=== PATIENT | male | born 1955 | race Caucasian/White ===

== ENCOUNTER 2019-12-12 02:16 | Emergency (ER) | payer MEDICARE, SELFPAY ==
[2019-12-12 02:26] VITALS: BP 159/105; PULSE 65; RESP 18; TEMP 36.4; O2SAT 99; BMI 24.1
--- NOTE | 2019-12-12 02:33 | CT_ITS ---
PROCEDURE: CT ABDOMEN PELVIS WO CON CLINICAL INDICATION: Left sided flank pain ' Left-sided flank pain, history kidney stones COMPARISON: ABDPELW CT ABD PELVIS W/ CONTRAST from 04/18/2017 TECHNIQUE: Axial images obtained with sagittal and coronal reformats. All CT scans at the facility use one or more dose reduction, viz: automated exposure control, ma/kV adjustment per patient size (including targeted exams where dose is matched to indication, i.e. head), or iterative reconstruction technique. FINDINGS: Severe dextro thoracic scoliosis with compensatory levo scoliosis of the lumbar spine. Artifact is present from posterior stabilizing rods. The lung bases are clear. There is thickening of the distal esophagus and gastroesophageal junction. This is nonspecific and may only be due to nondistention. Neoplasm or esophagitis is also considered in the differential diagnosis. Barium swallow or upper endoscopy may provide further evaluation. The liver, gallbladder, spleen, adrenal glands, pancreas, has an unremarkable MRI appearance. Nonobstructing right renal calculus in the lower pole. There are 2 stones each measuring 2 mm. There are 2 faint calcific densities at the left ureterovesical junction which could be due to small stones at 2 mm each. These could also be due to phleboliths. No hydronephrosis. No ureteral dilatation. Prostate is enlarged at 4.7 cm. No evidence of appendicitis or diverticulitis. No intestinal obstruction or free air. Severe S-shaped curvature of the thoracic and lumbar spine with spinal hardware. IMPRESSION: 1. There are 2 faint calcifications noted at the ureterovesical junction at 2 mm either 1 or both could be due to small UVJ stones or phleboliths. 2. Nonobstructing right nephrolithiasis. 3. Severe S-shaped curvature of the thoracic and lumbar spine with artifact from spinal hardware Dictated by: Suman Caraballo MD 12/12/2019 06:24 Electronically signed by Suman Caraballo MD in [place] 12/12/2019 06:24
[2019-12-12 02:41] LABS: Basophils # 0.1 K/mm3 (0-0.2); Basophils % 1.1 % (0.1-2.0); Eosinophils # 1.2 K/mm3 (0.0-0.4); Hematocrit 47.7 % (42.0-52.0); Lymphocytes # 4.2 K/mm3 (0.7-4.5); Lymphocytes % 45.2 % (10-50); Mean Corpuscular HGB Conc 33.5 g/dL (31.8-35.4); Mean Corpuscular Hemoglobin 30.2 pg (27.0-31.2); Mean Platelet Volume 7.8 fl (7.4-10.4); Monocytes # 0.7 K/mm3 (0.1-1.0); Monocytes % 6.9 % (1.7-9.3); Neutrophils # 3.2 K/mm3 (1.8-7.8); Neutrophils % 33.8 % (37.0-80.0); Platelet Count 261 K/mm3 (142-424); Red Cell Distribution Width 13.7 % (11.5-17.5); White Blood Count 9.4 K/mm3 (4.8-10.8)
[2019-12-12 02:45] LABS: Microscopic, Urine URINE MICROSCOPIC (MICROSCOPIC)
[2019-12-12 02:47] LABS: Alanine Aminotransferase 29 U/L (12-78); Albumin Level 4.6 g/dl (3.5-5.0); Albumin/Globulin Ratio 1.2 (1.1-1.8); Alkaline Phosphatase 117 U/L (38-126); Amylase 115 U/L (30-110); Anion Gap 12.7 mEq/L (5-15); Aspartate Amino Transferase 35 U/L (17-59); Bilirubin,Total 0.5 mg/dl (0.2-1.3); Blood Urea Nitrogen 18 mg/dl (9-20); Calcium 9.9 mg/dl (8.4-10.2); Carbon Dioxide 31 mmol/L (22.0-30.0); Chloride 100 mmol/L (98-107); Creatinine Clearance Estimated 62 mL/min (50-200); Estimated Glomerular Filt Rate 67 ml/min (>60); GFR (African American) 81 ML/MIN (>60); Globulin 3.8 g/dL (1.3-3.2); Glucose 127 mg/dl (74-100); Lipase 117 U/L (23-300); Potassium 3.7 mmoL/L (3.5-5.1); Sodium 140 mmol/L (136-145); Total Protein,Serum 8.4 g/dl (6.3-8.2)
[2019-12-12 02:47] LABS: Appearance,Urine CLEAR (Clear); Bilirubin,Urine Negative (Negative); Blood, Urine 3+ (Negative); Color,Urine YELLOW (Yellow); Glucose,Urine (UA) Negative (Negative); Ketones,Urine TRACE (Negative); Leukocyte Esterase,Urine Negative (Negative); Nitrate,Urine Negative (Negative); Protein,Urine Negative (Negative); Specific Gravity, Urine >= 1.030 (1.005-1.030); Urobilinogen,Urine 0.2 EU/dl (0.2)
[2019-12-12 02:58] LABS: Bacteria,Urine 1+ /lpf; Mucus,Urine 1+ /lpf; RBC,Urine TNTC #/hpf (0-3)
[2019-12-12 03:03] VITALS: BP 126/88; PULSE 63; RESP 15; O2SAT 96
--- NOTE | 2019-12-12 03:47 | HMH.EDNVD ---
ED Disposition Clinical Impression: Renal colic on left side Disposition: Home, Self-Care Condition on Discharge: Good Instructions: DI for Kidney Stones Additional Instructions: fluids and see urology for follow up Prescriptions: Tamsulosin HCl [Flomax 0.4mg capsule] 0.4 mg PO HS #10 cap Prescription Printed Referrals: Provider,MD Ga [Primary Care Provider] - Ashok Knott MD [Staff Physician] - - Critical Care Critical Care Time: No Attestation: On 12/12/19, the high probability of a clinically significant, sudden or life threatening deterioration of the following system(s) required my full and direct attention, intervention and personal management. The time I documented below is in addition to time spent performing reported procedures but includes the following listed in this critical care notation. Medical Decision Making - Medical Records Medical records reviewed: Yes: I reviewed the patient's medical records. - Tevin Inquiry Pt receiving controlled substance: No Vital Signs: 12/12/19 02:26 12/12/19 03:03 Temperature 97.6 F Temperature Source Oral Pulse Rate [Right Brachial] 65 63 Respiratory Rate 18 15 Blood Pressure [Right Arm] 159/105 H 126/88 Blood Pressure Mean [Right Arm] 123 100 Blood Pressure Source [Right Arm] Automatic Cuff Automatic Cuff Blood Pressure Position [Right Arm] Sitting Sitting 02 Sat by Pulse Oximetry 99 96 Oxygen Delivery Method Room Air Room Air - Lab Data Lab results reviewed: Yes: I reviewed the patient's lab results. Lab Results 12/12/19 02:30: WBC 9.4, RBC 5.30, Hgb 16.0, Hct 47.7, MCV 90.0, MCH 30.2, MCHC 33.5, RDW 13.7, Plt Count 261, MPV 7.8, Neut % (Auto) 33.8 L, Lymph % (Auto) 45.2, [place] % (Auto) 6.9, Eos % (Auto) 13.0 H, Baso % (Auto) 1.1, Neut # (Auto) 3.2, Lymph # (Auto) 4.2, [place] # (Auto) 0.7, Eos # (Auto) 1.2 H, Baso # (Auto) 0.1 12/12/19 02:30: Sodium 140, Potassium 3.7, Chloride 100, Carbon Dioxide 31 H, Anion Gap 12.7, BUN 18, Creatinine 1.10, Estimated Creat Clear 62, Estimated GFR 67, Est GFR ( Amer) 81, Glucose 127 H, Calcium 9.9, Total Bilirubin 0.5, AST 35, ALT 29, Alkaline Phosphatase 117, Total Protein 8.4 H, Albumin 4.6, Globulin 3.8 H, Albumin/Globulin Ratio 1.2, Amylase 115 H, Lipase 117 12/12/19 02:40: Urine Color Yellow, Urine Appearance Clear, Urine pH 6.0, Ur Specific [place] >= 1.030, Urine Protein Negative, Urine Glucose (UA) Negative, Urine Ketones Trace, Urine Blood 3+, Urine Nitrate Negative, Urine Bilirubin Negative, Urine Urobilinogen 0.2, Ur Leukocyte Esterase Negative, Urine RBC Tntc, Urine WBC 3-5, Ur Squamous Epith Cells 3-5, Urine Bacteria 1+, Urine Mucus 1+ Result diagrams: 12/12/19 02:30 12/12/19 02:30 Orders (Tests/Meds): ED MEDICATIONS Generic Name Dose Route Start Last Admin Trade Name Freq PRN Reason Stop Dose Admin Sodium Chloride 1,000 mls @ 999 mls/hr 12/12/19 03:15 12/12/19 03:11 Sod Chlor 0.9% 1000ml Bag IV 12/12/19 04:15 999 mls/hr .Q1H1M FLAQUITO Administration Discontinued Medications Generic Name Dose Route Start Last Admin Trade Name Freq PRN Reason Stop Dose Admin Ketorolac Tromethamine 30 mg 12/12/19 02:49 12/12/19 03:01 Toradol 30mg/Ml Vial IV 12/12/19 02:50 30 mg ONCE ONE Administration Ondansetron HCl 4 mg 12/12/19 02:49 12/12/19 03:01 Zofran 4mg/2ml Vial IV 12/12/19 02:50 4 mg ONCE ONE Administration ORDERS Category Date Time Status CT abdomen pelvis wo con Stat Cat Scan 12/12/19 02:33 Ordered - CT Data CT Scan: Abdomen, Pelvis Time Received: 03:[address] Reviewed: Yes: I have viewed the radiologist's interpretation Preliminary Findings: Abnormal (0.2 cm lt uvj stone ) Nausea/Vomiting/Diarrhea HPI - General Chief complaint: Abdominal Pain Stated complaint: Pain in left side and groin area Time Seen by Provider: 12/12/19 02:50 Mode of Arrival: Ambulatory Source of Information: Patient, Medical Record Limitation
[2019-12-12 03:58] VITALS: BP 132/85; PULSE 68; RESP 17; TEMP 36.7; O2SAT 98
== END 2019-12-12 04:04 | disposition home or self-care (01) ==
PROVIDERS: Emergency Provider Emergency Medicine
DX: N23 Unspecified renal colic (principal); Z87.442 Personal history of urinary calculi
CPT/HCPCS: 74176; 80053; 81001; 82150; 83690; 85025; 96365; 96375; 99283; J2405

== ENCOUNTER 2021-02-21 23:01 | Emergency (ER) | payer MEDICARE, SELFPAY ==
[2021-02-21 23:15] VITALS: BP 177/87; PULSE 69; RESP 18; TEMP 36.8; O2SAT 98; BMI 23.9
--- NOTE | 2021-02-21 23:22 | CT_ITS ---
PROCEDURE INFORMATION: Exam: CT Abdomen And Pelvis Without Contrast Exam date and time: 02/21/2021 11:22 PM Age: 65 years old Clinical indication: Abdominal pain; Flank; Right; Patient HX: HX of stones; Additional info: Right flank/abd pain TECHNIQUE: Imaging protocol: Computed tomography of the abdomen and pelvis without contrast. Radiation optimization: All CT scans at this facility use at least one of these dose optimization techniques: automated exposure control; mA and/or kV adjustment per patient size (includes targeted exams where dose is matched to clinical indication); or iterative reconstruction. COMPARISON: CT ABDOMEN PELVIS WO CON 12/12/2019 3:16 AM FINDINGS: Lungs: The visualized lung bases are unremarkable. Mediastinal space: There is fluid in the distal esophagus suggesting reflux. Small hiatal hernia. Liver: Unchanged 2.9 x 2.4 cm partially exophytic low-attenuation mass in the anterior left hepatic lobe. Gallbladder and bile ducts: No radiopaque gallstones. No gallbladder wall thickening. No biliary dilation. Pancreas: Unremarkable noncontrast appearance. Spleen: Normal. No splenomegaly. Adrenal glands: Normal. No mass. Kidneys and ureters: Unremarkable noncontrast appearance. No nephrolithiasis, within limits of beam-hardening artifact. No hydronephrosis. Stomach and bowel: No small bowel dilation or obstruction. [id number] amount of solid stool within the colon. No colonic dilation or wall thickening. Appendix: Appendix not visualized. Intraperitoneal space: No pneumoperitoneum. No ascites. Vasculature: Scattered mild atherosclerotic plaque. No abdominal aortic aneurysm. Lymph nodes: No enlarged lymph nodes. Urinary bladder: Bladder is partially fluid-filled. Reproductive: Prostate gland measures 4.7 x 4.2 cm in the axial plane, mildly enlarged. Coarse calcifications within the central portion of the prostate gland. Nonspecific small scrotal hydroceles partially visualized. Bones/joints: Severe rotatory scoliosis thoracolumbar spine, dextroconvex at the thoracic levels and levoconvex at the lumbar levels. Spinal fusion hardware is present, with associated beam-hardening artifact. Chronic-appearing defect in the left iliac wing is unchanged since prior. Soft tissues: Small umbilical and bilateral inguinal hernias containing fat. IMPRESSION: 1. No hydronephrosis or obstructive uropathy. 2. Small hiatal hernia. Suggested gastroesophageal reflux. 3. Other chronic findings as above.
[2021-02-21 23:30] LABS: Basophils # 0.1 K/mm3 (0-0.2); Eosinophils # 0.2 K/mm3 (0.0-0.4); Eosinophils % 2.3 % (0.1-12.0); Hematocrit 48.2 % (42.0-52.0); Hemoglobin 15.7 g/dL (14.1-18.0); Lymphocytes # 3.1 K/mm3 (0.7-4.5); Lymphocytes % 34.6 % (10-50); Mean Corpuscular HGB Conc 32.7 g/dL (31.8-35.4); Mean Corpuscular Hemoglobin 29.6 pg (27.0-31.2); Mean Corpuscular Volume 90.6 fl (80-94); Mean Platelet Volume 8.3 fl (7.4-10.4); Monocytes # 0.6 K/mm3 (0.1-1.0); Monocytes % 6.9 % (1.7-9.3); Neutrophils # 4.8 K/mm3 (1.8-7.8); Neutrophils % 55.1 % (37.0-80.0); Platelet Count 238 K/mm3 (142-424); Red Blood Count 5.32 M/mm3 (4.60-6.20); Red Cell Distribution Width 13.9 % (11.5-17.5); White Blood Count 8.8 K/mm3 (4.8-10.8)
[2021-02-21 23:35] LABS: Alanine Aminotransferase 28 U/L (12-78); Albumin Level 4.1 g/dl (3.5-5.0); Albumin/Globulin Ratio 1.1 (1.1-1.8); Alkaline Phosphatase 89 U/L (38-126); Amylase 103 U/L (30-110); Anion Gap 15.9 mEq/L (5-15); Aspartate Amino Transferase 34 U/L (17-59); Bilirubin,Total 0.4 mg/dl (0.2-1.3); Blood Urea Nitrogen 16 mg/dl (9-20); Carbon Dioxide 27 mmol/L (22.0-30.0); Chloride 105 mmol/L (98-107); Creatinine Clearance Estimated 67 mL/min (50-200); Estimated Glomerular Filt Rate 75 ml/min (>60); GFR (African American) 90 ML/MIN (>60); Globulin 3.6 g/dL (1.3-3.2); Glucose 101 mg/dl (74-100); Lipase 168 U/L (23-300); Potassium 3.9 mmoL/L (3.5-5.1); Sodium 144 mmol/L (136-145); Total Protein,Serum 7.7 g/dl (6.3-8.2)
[2021-02-21 23:41] LABS: C-Reactive Protein 3.3 mg/L (0-4)
--- NOTE | 2021-02-22 00:46 | HMH.EDNVD ---
ED Disposition Clinical Impression: Flank pain, acute Disposition: Home, Self-Care Condition on Discharge: Good Instructions: DI for Flank Pain Additional Instructions: see pcp for follow up Referrals: Provider,Referral, [Primary Care Provider] - - Critical Care Critical Care Time: No Attestation: On 02/21/21, the high probability of a clinically significant, sudden or life threatening deterioration of the following system(s) required my full and direct attention, intervention and personal management. The time I documented below is in addition to time spent performing reported procedures but includes the following listed in this critical care notation. Medical Decision Making - Medical Records Medical records reviewed: Yes: I reviewed the patient's medical records. - Tevin Inquiry Pt receiving controlled substance: No Vital Signs: 02/21/21 23:15 Temperature 98.2 F Temperature Source Oral Pulse Rate [Right Brachial] 69 Respiratory Rate 18 Blood Pressure [Right Arm] 177/87 H Blood Pressure Mean [Right Arm] 117 Blood Pressure Source [Right Arm] Automatic Cuff Blood Pressure Position [Right Arm] Sitting 02 Sat by Pulse Oximetry 98 Oxygen Delivery Method Room Air - Lab Data Lab results reviewed: Yes: I reviewed the patient's lab results. Lab Results 02/21/21 23:15: WBC 8.8, RBC 5.32, Hgb 15.7, Hct 48.2, MCV 90.6, MCH 29.6, MCHC 32.7, RDW 13.9, Plt Count 238, MPV 8.3, Neut % (Auto) 55.1, Lymph % (Auto) 34.6, [place] % (Auto) 6.9, Eos % (Auto) 2.3, Baso % (Auto) 1.0, Neut # (Auto) 4.8, Lymph # (Auto) 3.1, [place] # (Auto) 0.6, Eos # (Auto) 0.2, Baso # (Auto) 0.1 02/21/21 23:15: Sodium 144, Potassium 3.9, Chloride 105, Carbon Dioxide 27, Anion Gap 15.9 H, BUN 16, Creatinine 1.00, Estimated Creat Clear 67, Estimated GFR 75, Est GFR ( Amer) 90, Glucose 101 H, Calcium 9.0, Total Bilirubin 0.4, AST 34, ALT 28, Alkaline Phosphatase 89, C-Reactive Protein 3.3, Total Protein 7.7, Albumin 4.1, Globulin 3.6 H, Albumin/Globulin Ratio 1.1, Amylase 103, Lipase 168 02/22/21 00:55: Urine Color Yellow, Urine Appearance Clear, Urine pH 8.5, Ur Specific [place] 1.020, Urine Protein Negative, Urine Glucose (UA) Negative, Urine Ketones 1+, Urine Blood Negative, Urine Nitrate Negative, Urine Bilirubin Negative, Urine Urobilinogen 0.2, Ur Leukocyte Esterase Negative Result diagrams: 02/21/21 23:15 02/21/21 23:15 Orders (Tests/Meds): ED MEDICATIONS Generic Name Dose Route Start Last Admin Trade Name Freq PRN Reason Stop Dose Admin Sodium Chloride 1,000 mls @ 999 mls/hr 02/21/21 23:30 02/21/21 23:28 Sod Chlor 0.9% 1000ml Bag IV 02/22/21 00:30 999 mls/hr .Q1H1M FLAQUITO Administration Tamsulosin HCl 0.4 mg 02/22/21 21:00 02/21/21 23:49 Tamsulosin 0.4mg Capsule PO 03/24/21 20:59 0.4 mg HS FLAQUITO Administration Discontinued Medications Generic Name Dose Route Start Last Admin Trade Name Freq PRN Reason Stop Dose Admin Acetaminophen/Codeine Phosphate 1 carl 02/22/21 00:48 Acetaminophen 300mg W/Codeine 30mg Take Home Pack (6) PO 02/22/21 00:49 ONCE ONE Ketorolac Tromethamine 30 mg 02/21/21 23:25 02/21/21 23:28 Ketorolac 30mg/Ml Vial IV 02/21/21 23:26 30 mg ONCE ONE Administration Morphine Sulfate 4 mg 02/21/21 23:42 02/21/21 23:48 Morphine 4mg/Ml Syringe IV 02/21/21 23:43 4 mg ONCE ONE Administration Ondansetron HCl 4 mg 02/21/21 23:42 02/21/21 23:48 Ondansetron 4mg/2ml Vial IV 02/21/21 23:43 4 mg ONCE ONE Administration ORDERS Category Date Time Status Urinalysis and Microscopic Stat Lab 02/22/21 00:55 Results - CT Data CT Scan: Abdomen, Pelvis Time Received: 00:[address] Reviewed: Yes: I have viewed the radiologist's interpretation Preliminary Findings: Normal/NAD Medical Decision Narrative: acute rt flank pain with no rash p renal colic like pain Nausea/Vomiting/Diarrhea HPI - General Chief complaint: Abdominal Pain Stated co
[2021-02-22 00:58] LABS: Microscopic, Urine URINE MICROSCOPIC (MICROSCOPIC)
[2021-02-22 00:59] LABS: Appearance,Urine CLEAR (Clear); Bilirubin,Urine Negative (Negative); Blood, Urine Negative (Negative); Color,Urine YELLOW (Yellow); Glucose,Urine (UA) Negative (Negative); Ketones,Urine 1+ (Negative); Leukocyte Esterase,Urine Negative (Negative); Nitrate,Urine Negative (Negative); PH,Urine 8.5 (5.0-8.5); Protein,Urine Negative (Negative); Urobilinogen,Urine 0.2 EU/dl (0.2)
[2021-02-22 01:22] VITALS: BP 124/85; PULSE 76; RESP 18; TEMP 36.8; O2SAT 99
[2021-02-22 01:23] LABS: Amorphous Sediment,Urine 1+ /lpf; Bacteria,Urine Trace /lpf
[2021-02-22 01:40] LABS: Coronavirus 19, PCR Not Detected (NotDetected); Influenza A, PCR Not Detected (NotDetected); Influenza B, PCR Not Detected (NotDetected)
== END 2021-02-22 01:29 | disposition home or self-care (01) ==
PROVIDERS: Emergency Provider Emergency Medicine
DX: R10.11 Right upper quadrant pain (principal); Z20.822 Contact with and (suspected) exposure to COVID-19
CPT/HCPCS: 74176; 80053; 81001; 82150; 83690; 85025; 86140; 96365; 96375; 99282; J2405; U0003

== ENCOUNTER → 2023-06-05 07:26 | Outpatient (CLI) | payer MEDICARE, SELFPAY ==
[2023-06-05 19:23] LABS: Basophils # 0.1 K/mm3 (0-0.2); Eosinophils # 0.1 K/mm3 (0.0-0.4); Eosinophils % 1.8 % (0.1-12.0); Hematocrit 50.4 % (42.0-52.0); Lymphocytes # 2.3 K/mm3 (0.7-4.5); Lymphocytes % 31.6 % (10-50); Mean Corpuscular HGB Conc 33.7 g/dL (31.8-35.4); Mean Corpuscular Hemoglobin 30.5 pg (27.0-31.2); Mean Corpuscular Volume 90.4 fl (80-94); Mean Platelet Volume 9.7 fl (7.4-10.4); Monocytes # 0.5 K/mm3 (0.1-1.0); Monocytes % 7.4 % (1.7-9.3); Neutrophils # 4.2 K/mm3 (1.8-7.8); Neutrophils % 58.1 % (37.0-80.0); Platelet Count 218 K/mm3 (142-424); Red Blood Count 5.57 M/mm3 (4.60-6.20); Red Cell Distribution Width 13.7 % (11.5-17.5); White Blood Count 7.2 K/mm3 (4.8-10.8)
[2023-06-05 20:06] LABS: Alanine Aminotransferase 37 U/L (12-78); Alkaline Phosphatase 106 U/L (38-126); Aspartate Amino Transferase 34 U/L (17-59); Bilirubin,Total 0.8 mg/dl (0.2-1.3); Blood Urea Nitrogen 17 mg/dl (9-20); Carbon Dioxide 29 mmol/L (22.0-30.0); Chloride 103 mmol/L (98-107); Estimated Glomerular Filt Rate 60 ml/min (>60); GFR (African American) 73 ML/MIN (>60)
[2023-06-05 20:08] LABS: Albumin Level 4.4 g/dl (3.5-5.0); Albumin/Globulin Ratio 1.3 (1.1-1.8); Anion Gap 10.8 mEq/L (5-15); Calcium 8.7 mg/dl (8.4-10.2); Globulin 3.5 g/dL (1.3-3.2); Glucose 103 mg/dl (74-100); Potassium 4.8 mmoL/L (3.5-5.1); Sodium 138 mmol/L (136-145); Total Protein,Serum 7.9 g/dl (6.3-8.2)
[2023-06-05 20:33] LABS: Thyroid Stimulating Hormone 2.01 uIU/mL (0.465-4.68)
[2023-06-05 20:51] LABS: Vitamin B12 422 pg/mL (239-931)
== END ==
PROVIDERS: PCP Family Medicine; Visit Provider Family Medicine
DX: R07.9 Chest pain, unspecified (principal); H53.8 Other visual disturbances; R53.1 Weakness; N23 Unspecified renal colic; R25.2 Cramp and spasm
CPT/HCPCS: 80053; 82607; 84443; 85025

== ENCOUNTER → 2023-06-11 11:06 | Outpatient (CLI) | payer MEDICARE, SELFPAY ==
--- NOTE | 2023-06-11 11:08 | CA_ITS ---
APPROVED REPORT Exam: Exercise Treadmill Technologist: Mesha Rodríguez, Ht: 5 ft 5 in Wt: 152 lbs BSA: 1.76 m2 HR: 53 bpm BP: 139/92 mmHg Stress Test Details Test: Theo HR Resting HR: 55 bpm Max Heart Rate (APMHR): 152 bpm Max HR Achieved: 134 bpm Target HR (85% APMHR): 129 bpm % of APMHR: 88 Recovery HR: 114 bpm HR response to stress: Normal HR response to stress BP Resting BP: 146.0/95 mmHg Max BP: 170/110 mmHg Recovery BP: 159.0/98.0 mmHg BP response to stress: Normal blood pressure response to stress. ECG Resting ECG: NSR, T-wave changes at baseline Stress EC mm horizontal ST depression Arrhythmia: None Recovery ECG: Return to baseline within 3 minutes of recovery Recovery Arrhythmia: None Clinical Exercise duration: 09:00 min Highest Stage Achieved: Exercise capacity: 10.1 METs Overall Exercise Capacity for Age: Average Stress ECG Conclusion The patient was able to exercise for a total of 9m, 0s. He achieved a total of 10.1 METs. He has an average exercise capacity compared to age and sex matched peers. During Theo protocol pt experinced SOA with peak exercise, no CP noted. No arrhytmias noted. ST changes: 1mm horizontal ST depression. CONCLUSION Stress ECG suggestive of ischemia. Myoview images are reported separately. Test Summary REST . . . . . . . Sitting REST . . . . . . . Standing REST 05:22 0.0 0.0 55 . 146/ 95 . . Stage 1 01:00 10.0 1.7 103 . . . . Stage 1 02:00 10.0 1.7 109 . 165/105 . . Stage 1 03:00 10.0 1.7 108 . 165/105 . . Stage 2 01:00 12.0 2.5 116 . . . . Stage 2 02:00 12.0 2.5 120 . 170/110 . . Stage 2 03:00 12.0 2.5 115 . 170/110 . . Stage 3 01:00 14.0 3.4 126 . . . . Stage 3 02:00 14.0 3.4 130 . . . . Stage 3 03:00 14.0 3.4 133 . . . Stop exercise at 09:00 RECOVERY 01:00 0.0 0.0 108 . 159/ 98 . . RECOVERY 02:00 0.0 0.0 93 . 159/ 98 . . RECOVERY 03:00 0.0 0.0 74 . 146/ 91 . . RECOVERY 04:00 0.0 0.0 0 . 146/ 91 . . RECOVERY 04:45 0.0 0.0 0 . 146/ 91 . . Electronically signed by : Jesenia Lucas MD 06/16/2023 17:55:57
--- NOTE | 2023-06-11 11:13 | NM_ITS ---
APPROVED REPORT Exam: Nuclear Stress Test Indication: C.P., FATIGUE Patient Location: Outpatient Stress Tech: Mesha SCHROEDER Tech:Mary Wooten PASHAKameron RT (R)(N)(M) Ht: 5 ft 5 in Wt: 152 lbs HR: 55 bpm BP: 146/95 mmHg BSA: 1.76 m2 TID: 1.11 BMI: 25.2 History: Chest pain, fatigue 6 Procedure: Patient exercised on Theo protocol 9:00 minutes and sec, resting heart rate 55 bpm, resting blood pressure 146/95 mmHg, with exercise maximum heart rate achived was 134 bpm which is 88 % of the maximum predicted heart rate and blood pressure was 170/110 mmHg. Test was stopped due to fatigue. Patient has average exercise capacity, achieved 10.1 METs of workload on treadmill, the blood pressure response to exercise was normal. Cardiac Stress and Resting SPECT Images: Cardiac Stress and Resting SPECT images were obtained using technetium 99m Myoview 31.2 mCi stress and 10.01 mCi at rest. Resting and stress imaging in supine and prone positions demonstrate no evidence of fixed or reversible perfusion defects. Gated imaging demonstrates low-normal global and regional LV systolic function. LVEF is calculated at 50%. Conclusion: No evidence of fixed or reversible perfusion defects. Gated imaging demonstrates low-normal global and regional LV systolic function. LVEF is calculated at 50%. Electronically signed by : Jesenia Lucas MD 06/16/2023 17:58:23
== END ==
LOC: RT 11:08 → RAD 11:09
PROVIDERS: PCP Family Medicine; Visit Provider Family Medicine
DX: R07.9 Chest pain, unspecified (principal)
CPT/HCPCS: 78452; 93017; 93018; A9502

== ENCOUNTER 2023-10-21 03:41 | Emergency (ER) | payer MEDICARE, SELFPAY ==
[2023-10-21 03:52] VITALS: BP 149/99; PULSE 90; RESP 20; O2SAT 99
[2023-10-21 04:00] VITALS: BP 149/99; PULSE 86; RESP 19; TEMP 36.7; O2SAT 96; BMI 24.4
--- NOTE | 2023-10-21 04:16 | CT_ITS ---
PROCEDURE INFORMATION: Exam: CT Lumbar Spine Without Contrast Exam date and time: 10/21/2023 5:01 AM Age: 67 years old Clinical indication: Pain; Lumbago with sciatica; Additional info: Acute severe atraumatic R low back/si joint pain TECHNIQUE: Imaging protocol: Computed tomography of the lumbar spine without contrast. Radiation optimization: All CT scans at this facility use at least one of these dose optimization techniques: automated exposure control; mA and/or kV adjustment per patient size (includes targeted exams where dose is matched to clinical indication); or iterative reconstruction. COMPARISON: CT ABDOMEN PELVIS WO CON 02/21/2021 11:28 PM FINDINGS: Bones/joints: Severe dextroconvex scoliosis in the thoracic spine and levoconvex scoliosis in the lumbar spine. Stable appearing postsurgical changes with bilateral stabilization rods in the thoracolumbar spine. 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 Soft tissues: No acute findings. IMPRESSION: 1. No acute osseous findings. 2. Severe thoracolumbar scoliosis with extensive spinal postsurgical changes, similar to prior exam.
--- NOTE | 2023-10-21 04:18 | CT_ITS ---
PROCEDURE INFORMATION: Exam: CT Pelvis Without Contrast; Skeletal Exam date and time: 10/21/2023 5:05 AM Age: 67 years old Clinical indication: Pelvic pain; Additional info: Acute severe atraumatic R low back/si joint pain TECHNIQUE: Imaging protocol: Computed tomography of the pelvis without contrast. Exam focused on the skeleton. Radiation optimization: All CT scans at this facility use at least one of these dose optimization techniques: automated exposure control; mA and/or kV adjustment per patient size (includes targeted exams where dose is matched to clinical indication); or iterative reconstruction. COMPARISON: CT ABDOMEN PELVIS WO CON 02/21/2021 11:28 PM FINDINGS: Bones/joints: Chronic postsurgical changes in the lumbar spine. Chronic osseous defect in the left ilium. No acute osseous findings. No osseous destructive process. Levoconvex scoliosis of the lumbar spine. Soft tissues: No acute findings. IMPRESSION: 1. No acute osseous findings. 2. Chronic and postsurgical changes in the lumbar spine and pelvis.
--- NOTE | 2023-10-21 04:19 | HMH.EDGENADL ---
Discharge Plan Disposition Patient Disposition: Home, Self-Care Chief Complaint: Back Pain/Injury Prescriptions Prescriptions: New methocarbamol 500 mg tablet 1,000 mg PO Q6H PRN (Reason: pain) Qty: 45 0RF lidocaine 5 % adhesive patch,medicated 1 patch topical DAILY PRN (Reason: pain) Qty: 30 0RF Rx Instructions: leave on most painful area for up to 12 hrs No Action pregabalin 75 mg capsule 75 mg PO BID Qty: 60 3RF methylprednisolone [Medrol (Denzel)] 4 mg tablets,dose pack See Rx Instructions PO PER PKG DIR Qty: 21 0RF Rx Instructions: PO PER PKG DIR Referrals Follow up/Referrals: Provider,Referral, [Primary Care Provider] - See instructions Activity Restrictions/Add. Instructions Additional Instructions/Restrictions: Please follow-up with your primary care provider. Please return to the emergency department if you develop any new or worsening symptoms or become concerned for your health. Please take Tylenol ibuprofen as needed for pain. Please take Robaxin as needed for pain. Please use lidocaine patches. Clinical Impressions Clinical Impression: Low back pain Instructions Patient Instructions: DI for Low Back Pain Discharge ED Provider: Braxton Suarez General Adult HPI General Chief complaint: Back Pain/Injury Stated complaint: lower back right side pain Time Seen by Provider: 10/21/23 03:45 Mode of Arrival: Family Vehicle Source of Information: Patient Limitations: No Limitations Description of Symptoms (Recalled from ER Triage Doc. by RN): 67 yo male presents with CC of right lumbar pain with radiation reported down into the RLE; patient is alert,oriented x4. States he has no recent history of accident/trauma; denies excess exertion. PMH: scoliosis w/ multiple repairs. History of Present Illness HPI narrative: 67-year-old male with history of scoliosis status post repairs decades ago presents with right low back pain. Reports that it sometimes shoots across his low back, sometimes shoots down the right leg. He reports it started when he woke up a few mornings ago. It has slowly worsened and is now much worse. When he sits up in the chair he does not have any significant pain, but it is significantly worse with lying down or bending over or walking. He denies any recent fever or illness. Denies any history of cancer. Denies any history of drug use. He denies any numbness in the groin or weakness in the lower extremities. He has taken ibuprofen at home without improvement. No recent falls or trauma. Denies any urinary symptoms. Reports has had kidney stones and this does not feel anything like it. 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 Medical History (Updated 10/21/23 @ 06:19 by Braxton Suarez MD) Herpes zoster Pterygium of eye Weakness Chest pain Leg cramps Blurry vision, left eye Kidney stone Surgical History History of back surgery Family History Other No significant family history Social History Smoking Status: Former smoker alcohol intake: never current occupational status: employed Travel in the last 8 weeks: None ROS Obtained: Yes All systems reviewed & no additional complaints except as documented Physical Exam General General appearance: alert and in no apparent distress Comment: Uncomfortable appearing laying in bed secondary to pain Head Head exam: atraumatic and normocephalic Eye Eye exam: Present normal appearance, PERRL and EOMI ENT ENT exam: Present normal oropharynx and normal external ear exam Neck Neck exam: Present normal inspection and full ROM Chest Chest inspection: Present normal inspection and symmetric chest wall rise; Absent tenderness Respiratory Respiratory exam: Present normal lung sounds bilaterally; Absent respiratory distress Cardiovascular Cardiovascular exam: Present regular rate and normal rhythm Abdominal Exam Abdominal exam: Present soft; Absent distention, tenderness or guarding Extremities Exam Extremities exam: Present normal inspection, full ROM (Active range of motion of the lower extremities limited secondary to pain, no weakness noted, normal sensation) and other (Appropriate lower extremity pulses noted); Absent edema or joint swelling Back Exam Back exam: Present other (Significant scoliosis noted. Tenderness over the right SI joint and surrounding soft tissue. No significant midline tenderness.) Neurological Exam Neurological exam: Present alert and oriented X3; Absent motor sensory deficit Psychiatric Psychiatric exam: Present normal affect and normal mood Skin Skin exam: Present warm, dry and normal color Lymphatic Lymphatic Findings: no adenopathy Medical Decision Making Medical Records Medical records reviewed: Yes I reviewed the patient's medical records. Tevin Inquiry Pt receiving controlled substance: No Tevin was queried for this patient: No Vital Signs: 10/21/23 03:52 10/21/23 04:00 10/21/23 05:22 Temperature 98.0 F Temperature Source Oral Pulse Rate 90 77 Pulse Rate [Right Brachial] 86 Respiratory Rate 20 19 18 Blood Pressure 149/99 H 123/92 H Blood Pressure [Right Arm] 149/99 H Blood Pressure Mean 121 Blood Pressure Mean [Right Arm] 115 Blood Pressure Source [Right Arm] Automatic Cuff Blood Pressure Position [Right Arm] Sitting 02 Sat by Pulse Oximetry 99 96 97 Oxygen Delivery Method Room Air Room Air Room Air Lab Data Lab results reviewed: Yes I reviewed the patient's lab results. Orders (Tests/Meds): ED MEDICATIONS Discontinued Medications Generic Name Dose Route Start Last Admin Trade Name Freq PRN Reason Stop Dose Admin Acetaminophen 1,000 mg 10/21/23 04:16 10/21/23 04:24 Acetaminophen 500mg Tab PO 10/21/23 04:17 1,000 mg ONCE ONE Administration Ketorolac Tromethamine 30 mg 10/21/23 04:16 10/21/23 04:24 Ketorolac 30mg/Ml Vial IV 10/21/23 04:17 30 mg ONCE ONE Administration Lidocaine 1 each 10/21/23 04:16 10/21/23 04:25 Lidocaine 5% Transdermal Patch TP 10/21/23 04:17 1 each ONCE ONE Administration Methocarbamol 750 mg 10/21/23 04:16 10/21/23 04:25 Methocarbamol 500mg Tablet PO 10/21/23 04:17 750 mg ONCE ONE Administration ORDERS Category Date Time Status CT bony pelvis Stat Cat Scan 10/21/23 04:[address] lumbar spine wo con Stat Cat Scan 10/21/23 04:16 Completed Medical Decision Narrative: 67-year-old male with history of scoliosis presents with few days of worsening atraumatic right sided low back pain shooting across the low back and down the right leg.. History was obtained interactive discussion with patient. On arrival, patient is [afebrile, hemodynamically stable, satting appropriately, alert, oriented x4, GCS 15], moving all extremities spontaneously. Full physical exam performed and significant for no findings consistent with spinal cord pathology Differential includes but is not limited to fracture, dislocation, malignancy, disc herniation, SI joint pathology spinal cord lesion,. Patient was given p.o. Tylenol, IV Toradol, p.o. Robaxin, lidocaine patch for symptomatic management and correction of underlying abnormalities. Workup initiated including CT lumbar spine, CT bony pelvis given age with new acute severe back pain. Given it is changed with positioning, reproducible on palpation, unilateral and very low in the back, has normal lower extremity neuro vascular exam I am not concerned that it is aortic, renal, or spinal cord in nature at this time. On re-evaluation, patient [remains afebrile, HD stable.] Reports some symptomatic improvement after medication interventions. Reports now when he sits still he does not really feel it. Still exacerbated by movement. Imaging independently interpreted by me and significant for extensive lumbar hardware and chronic degenerative changes without evidence of acute fracture, malignancy, ureteral stone. See radiology read for full review of final results. Given patient history, exam and workup, patient's presentation most likely represents musculoskeletal low back pain, may be SI joint in nature. Had extensive discussion with patient regarding his presentation and workup. Recommended he follow-up with PCP for further assessment. Patient was discharged with prescription for Robaxin and lidocaine patches and given instruction regarding symptomatic care using [id number] medications and therapies.. Procedures Risk/Benefits of Procedure(s) Were Explained: Yes Critical Care Critical Care Time Critical Care Time: No
[2023-10-21] MEDS: KETOROLAC 30MG/ML VIAL 30 MG IV (04:24)
[2023-10-21] MEDS: ACETAMINOPHEN 500MG TAB 1000 MG PO (04:24)
[2023-10-21] MEDS: LIDOCAINE 5% TRANSDERMAL PATCH 1 EACH TP (04:25)
[2023-10-21] MEDS: METHOCARBAMOL 500MG TABLET 750 MG PO (04:25)
[2023-10-21 05:22] VITALS: BP 123/92; PULSE 77; RESP 18; O2SAT 97
[2023-10-21 06:29] VITALS: BP 120/88; PULSE 89; RESP 16; TEMP 36.6
== END 2023-10-21 06:33 | disposition home or self-care (01) ==
PROVIDERS: Emergency Provider Emergency Medicine
DX: M54.50 Low back pain, unspecified (principal)
CPT/HCPCS: 72131; 72192; 96374; 99285

== ENCOUNTER 2024-08-01 18:32 | Emergency (ER) | payer MEDICARE, SELFPAY ==
[2024-08-01] VITALS (10 sets, daily range): BP systolic 133–156; BP diastolic 97–115; PULSE 61–77; RESP 16–20; TEMP 36.8; O2SAT 94–99; BMI 23.3
--- NOTE | 2024-08-01 18:32 | ECG_ITS ---
APPROVED REPORT Exam: Resting ECG HR:77 bpm ECG Measurements Heart Rate 77 AXES NC 157 P 42 QRSd 93 QRS 54 QT 347 T 16 QTc 379 Conclusion SINUS RHYTHM POSSIBLE LEFT ATRIAL ENLARGEMENT [-0.1mV P-WAVE IN V1/V2] Electronically signed by : OCTAVIO LOGAN, 08/02/2024 00:16:19
--- NOTE | 2024-08-01 18:53 | CT_ITS ---
PROCEDURE INFORMATION: Exam: CTA Chest With Contrast Exam date and time: 08/01/2024 7:27 PM Age: 68 years old Clinical indication: Other: Chest pain rad to back TECHNIQUE: Imaging protocol: Computed tomographic angiography of the chest with contrast. Exam focused on the arteries. 3D rendering (Not supervised by radiologist): MIP and/or 3D reconstructed images were created by the technologist. Radiation optimization: All CT scans at this facility use at least one of these dose optimization techniques: automated exposure control; mA and/or kV adjustment per patient size (includes targeted exams where dose is matched to clinical indication); or iterative reconstruction. Contrast material: ISOUVE 370; Contrast volume: 70 ml; Contrast route: INTRAVENOUS (IV); COMPARISON: CT ABDOMEN PELVIS WO CON 02/21/2021 11:28 PM FINDINGS: Pulmonary arteries: There is no evidence of filling defects within the pulmonary arterial circulation to suggest pulmonary embolism. Aorta: The descending thoracic aorta is tortuous. No ectasia. No dissection. Teeth: Dental amalgam artifact limits evaluation of adjacent structures. Thyroid: The left thyroid appears small. The right thyroid lobe appears within range of normal. Lungs: No focal areas of consolidation. There is a small subpleural bulla/bleb involving the posteroinferior right lower lobe measuring approximately 3 x 0.7 cm. There are a few punctate pulmonary parenchymal calcifications, consistent with remote granulomatous organism exposure. Pleural spaces: No pneumothorax. No pleural effusions. Heart: The heart is not enlarged. There is no evidence of pericardial fluid collections. Lymph nodes: There is no evidence of pathologic adenopathy. A few calcified hilar lymph nodes bilaterally indicate prior granulomatous disease. Diaphragm: A moderate hiatal hernia is present. Gallbladder and biliary ducts: A few subtle layering foci of increased attenuation in the gallbladder likely reflect stones or sludge. No gallbladder wall thickening or pericholecystic fluid. calcified gallstones are present. Bones/joints: There is severe convex right thoracolumbar scoliosis with an S- shaped convex left lumbar scoliosis. Extensive posterior spinal fixation hardware is present, as before. There are mild degenerative changes of the shoulder joints bilaterally. There is no evidence of acute fracture. The thoracic spine demonstrates moderate degenerative changes at multiple levels. Soft tissues: No significant soft tissue edema. IMPRESSION: 1. No evidence of pulmonary embolism. 2. Mild cholelithiasis or sludge. 3. Small to moderate hiatal hernia. 4. Small subpleural bulla/bleb involving the posteroinferior right lower lobe measuring approximately 3 x 0.7 cm.
[2024-08-01 18:58] LABS: Basophils # 0.1 K/mm3 (0-0.2); Eosinophils # 0.3 K/mm3 (0.0-0.4); Eosinophils % 3.7 % (0.1-12.0); Hematocrit 47.4 % (42.0-52.0); Hemoglobin 15.6 g/dL (14.1-18.0); Lymphocytes # 2.7 K/mm3 (0.7-4.5); Lymphocytes % 30.6 % (10-50); Mean Corpuscular HGB Conc 32.9 g/dL (31.8-35.4); Mean Corpuscular Hemoglobin 28.7 pg (27.0-31.2); Mean Corpuscular Volume 87.1 fl (80-94); Mean Platelet Volume 9.4 fl (7.4-10.4); Monocytes # 1.1 K/mm3 (0.1-1.0); Monocytes % 11.7 % (1.7-9.3); Neutrophils # 4.7 K/mm3 (1.8-7.8); Neutrophils % 52.8 % (37.0-80.0); Platelet Count 242 K/mm3 (142-424); Red Blood Count 5.44 M/mm3 (4.60-6.20)
[2024-08-01 19:01] LABS: Albumin Level 4.3 g/dl (3.5-5.0); Chloride 104 mmol/L (98-107); Potassium 3.6 mmoL/L (3.5-5.1); Sodium 139 mmol/L (136-145)
[2024-08-01 19:03] LABS: Alanine Aminotransferase 32 U/L (12-78); Aspartate Amino Transferase 40 U/L (17-59); Bilirubin,Total 0.6 mg/dl (0.2-1.3); Blood Urea Nitrogen 15 mg/dl (9-20); Carbon Dioxide 29 mmol/L (22.0-30.0); Creatinine Clearance Estimated 65 mL/min (50-200); Estimated Glomerular Filt Rate 74 ml/min (>60); GFR (African American) 90 ML/MIN (>60)
[2024-08-01 19:04] LABS: Albumin/Globulin Ratio 1.3 (1.1-1.8); Alkaline Phosphatase 107 U/L (38-126); Anion Gap 9.6 mEq/L (5-15); Globulin 3.3 g/dL (1.3-3.2); Glucose 105 mg/dl (74-100); Lipase 109 U/L (23-300); Total Protein,Serum 7.6 g/dl (6.3-8.2)
[2024-08-01] MEDS: ACETAMINOPHEN 500MG TAB 1000 MG PO (19:16)
[2024-08-01] MEDS: KETOROLAC 30MG/ML VIAL 15 MG IV (19:16)
[2024-08-01] MEDS: BELLADONNA ALKALOIDS 60 ML ML PO (19:16)
[2024-08-01 19:19] LABS: Troponin I < 0.01 ng/ml (0.00-0.034)
--- NOTE | 2024-08-01 19:19 | ED_ITS ---
Discharge Plan Disposition Patient Disposition: Home, Self-Care Condition: Good Prescriptions Prescriptions: New acyclovir 800 mg tablet 800 mg PO Q4H 7 Days Qty: 42 0RF Rx Instructions: while awake; give 5 doses in 24 hours gabapentin 300 mg capsule 300 mg PO Q12H PRN (Reason: pain) Qty: 12 0RF Referrals Follow up/Referrals: Villa Hartman MD [Staff Physician] - See instructions Margie Vaughan MD [Primary Care Provider] - See instructions Zeynep Leigh MD [Physician] - See instructions Ayad Lucas MD [Staff Physician] - See instructions Activity Restrictions/Add. Instructions Additional Instructions/Restrictions: You were evaluated in the emergency department today. Please pickup driver your prescriptions at the pharmacy. Use caution when taking gabapentin, as it can make you sleepy. 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 Follow-up closely with your primary care provider. You have a lung bleb, for which I recommend outpatient follow-up with pulmonology. You have gallstones and biliary sludge, for which I recommend follow-up with general surgery, as this can cause chest and abdominal pain. I also recommend close follow-up with cardiology given your recurrent chest pain. Return to the emergency department right away for new or worsening symptoms. Clinical Impressions Clinical Impression: Herpes zoster infection of thoracic region, Chest pain, Gallstones, Bleb, lung, Gallbladder sludge Instructions Patient Instructions: DI for Shingles, DI for Gallstones, DI for Chest Pain Print Language Print Language: Maltese Discharge ED Provider: Parris Marino HPI General Chief Complaint: Chest Pain Stated Complaint: CP Time Seen by Provider: 08/01/24 18:34 Mode of Arrival: Ambulatory Source of Information: Patient Limitations: No Limitations Description of Symptoms (Recalled from ER Triage Doc. by RN): pt c/o sternal chest pain that radiates to his back and epigastic region. pt also reports L sided jaw pain. pt states the chest pain is a 4/10. The pain has been intermittant since 1430. pt denies SOA or N/V/D pt denies any daily medications or medical hx. History of Present Illness HPI narrative: This patient is a 68-year-old male with a history of herpes zoster presenting to the emergency department for evaluation with concern for chest pain. Patient states that he is having midsternal chest pain that radiates to different areas at different times. It is intermittent and comes and goes and has for quite some time, but has been more frequent today. He states that it intermittently radiates up to his right shoulder, left jaw, left ear, and to his back. It is 4 out of 10. No shortness of breath, nausea, vomiting, diarrhea. No trauma. He does have a rash with bumps coming around his right lower ribs. He does have a history of shingles over a year ago. Related Data Previous Rx's ?Medication ?Instructions ?Recorded acyclovir 800 mg tablet 800 mg PO Q4H 7 days #42 tabs 08/01/24 gabapentin 300 mg capsule 300 mg PO Q12H PRN pain #12 caps 08/01/24 Allergies Allergy/AdvReac Type Severity Reaction Status Date / Time No Known Allergies Allergy Verified 08/01/24 18:45 [facility] Disclaimer: The information contained in this section may have been updated after the patient was seen, as this information can be updated by other users. Medical History Herpes zoster Pterygium of eye Weakness Chest pain Leg cramps Blurry vision, left eye Kidney stone Surgical History History of back surgery Family History Other No significant family history Social History Smoking Status: Never smoker alcohol intake: never current occupational status: employed Travel in the last 8 weeks: None Have you lived/traveled outside [place] in past 30 days?: No Contact w/someone who lives/traveled outside [place] past 30 days?: No Exposure to someone with infectious disease in past 14 days?: No Do you have a fever (greater than 100.4 F or 38 C)?: No Have you tested positive for COVID-19: No Exposed to someone with COVID-19 in past 14 days?: No Do you have a sore throat?: No Do you have a cough?: No Do you have any weakness?: No Do you have any diarrhea?: No Are you experiencing any unusual bleeding?: No Do you have any muscle aches/pain?: No Do you have any abdominal pain?: No Are you experiencing loss of taste or smell?: No Other Medical History Have you received the Flu Vaccine for this season: No Have you received the Pneumonia Vaccine: No ROS Obtained: Yes All systems reviewed & no additional complaints except as documented Physical Exam General General appearance: alert and in no apparent distress Head Head exam: atraumatic and normocephalic Eye Eye exam: Present normal appearance, PERRL and EOMI ENT ENT exam: Present normal exam, normal oropharynx, mucous membranes moist and normal external ear exam Neck Neck exam: Present normal inspection, full ROM and trachea midline; Absent tenderness Chest Chest inspection: Present normal inspection and symmetric chest wall rise; Absent tenderness Respiratory Respiratory exam: Present normal lung sounds bilaterally; Absent respiratory distress, wheezes, stridor or accessory muscle use Cardiovascular Cardiovascular exam: Present regular rate and normal rhythm Abdominal Exam Abdominal exam: Present soft; Absent distention, tenderness or guarding Extremities Exam Extremities exam: Present normal inspection, full ROM and normal capillary refill; Absent tenderness or edema Back Exam Back exam: Present normal inspection and full ROM; Absent tenderness Neurological Exam Neurological exam: Present alert, oriented X3, CN II-XII intact and normal gait; Absent motor sensory deficit Psychiatric Psychiatric exam: Present normal affect and normal mood Skin Skin exam: Present warm, dry and other (Vesicular rash in a dermatomal distribution around the right chest/lower ribs with tenderness to palpation) HEART Score HEART Score HEART Score assessment performed?: Yes History (anamnesis): Moderately suspicious ECG: Normal Age: >65 years Risk factors: 1-2 risk factors Troponin: </= normal limit HEART Score: 4 Critical Care Critical Care Time Critical Care Time: No Medical Decision Making Tevin Inquiry Pt receiving controlled substance: Yes Tevin was queried for this patient: Yes Risks and benefits of using a controlled substance: were discussed with pt by me Vital Signs Vital Signs: 08/01/24 18:35 08/01/24 19:00 08/01/24 20:00 Temperature 98.3 F Temperature Source Oral Pulse Rate 71 69 Pulse Rate [Left] 77 Respiratory Rate 18 16 Blood Pressure 141/103 H 133/97 H Blood Pressure [Right Arm] 155/110 H Blood Pressure Mean [Right Arm] 125 Blood Pressure Source [Right Arm] Automatic Cuff Blood Pressure Position [Right Arm] Sitting 02 Sat by Pulse Oximetry 97 96 94 L Oxygen Delivery Method Room Air 08/01/24 20:30 08/01/24 20:31 08/01/24 21:00 Temperature Temperature Source Pulse Rate 68 75 68 Pulse Rate [Left] Respiratory Rate Blood Pressure 136/115 H 156/112 H 153/110 H Blood Pressure [Right Arm] Blood Pressure Mean [Right Arm] Blood Pressure Source [Right Arm] Blood Pressure Position [Right Arm] 02 Sat by Pulse Oximetry 95 94 L 98 Oxygen Delivery Method 08/01/24 21:30 08/01/24 22:00 08/01/24 22:30 Temperature Temperature Source Pulse Rate 65 64 61 Pulse Rate [Left] Respiratory Rate Blood Pressure 144/109 H 139/104 H 156/104 H Blood Pressure [Right Arm] Blood Pressure Mean [Right Arm] Blood Pressure Source [Right Arm] Blood Pressure Position [Right Arm] 02 Sat by Pulse Oximetry 99 96 97 Oxygen Delivery Method 08/01/24 22:44 Temperature 98.2 F Temperature Source Pulse Rate 61 Pulse Rate [Left] Respiratory Rate 20 Blood Pressure 156/104 H Blood Pressure [Right Arm] Blood Pressure Mean [Right Arm] Blood Pressure Source [Right Arm] Blood Pressure Position [Right Arm] 02 Sat by Pulse Oximetry Oxygen Delivery Method Room Air Lab Data Labs: Lab Results 08/01/24 18:40: WBC 9.0, RBC 5.44, Hgb 15.6, Hct 47.4, MCV 87.1, MCH 28.7, MCHC 32.9, RDW 13.0, Plt Count 242, MPV 9.4, Neut % (Auto) 52.8, Lymph % (Auto) 30.6, [place] % (Auto) 11.7 H, Eos % (Auto) 3.7, Baso % (Auto) 1.0, Neut # (Auto) 4.7, Lymph # (Auto) 2.7, [place] # (Auto) 1.1 H, Eos # (Auto) 0.3, Baso # (Auto) 0.1, Sodium 139, Potassium 3.6, Chloride 104, Carbon Dioxide 29, Anion Gap 9.6, BUN 15, Creatinine 1.00, Estimated Creat Clear 65, Estimated GFR 74, Est GFR ( Amer) 90, Glucose 105 H, Calcium 9.0, Total Bilirubin 0.6, AST 40, ALT 32, Alkaline Phosphatase 107, Troponin I < 0.01, Total Protein 7.6, Albumin 4.3, Globulin 3.3 H, Albumin/Globulin Ratio 1.3, Lipase 109, TSH 2.61, Thyroxine (T4) 6.3, HCV Ab FABY w/Rflx PCR Qn Negative, HIV Ag/Ab Combo Qual Negative 08/01/24 20:30: Troponin I < 0.01 08/01/24 18:40 08/01/24 18:40 Response Orders (Tests/Meds): ED MEDICATIONS Discontinued Medications Generic Name Dose Route Start Last Admin Trade Name Navid PRN Reason Stop Dose Admin Acetaminophen 1,000 mg 08/01/24 18:54 08/01/24 19:16 Acetaminophen 500mg Tab PO 08/01/24 18:55 1,000 mg ONCE ONE Administration Acetaminophen 1,000 mg 08/01/24 19:23 08/01/24 19:34 Acetaminophen 500mg Tab PO 08/01/24 19:24 Not Given ONCE ONE Acyclovir 800 mg 08/01/24 22:39 08/01/24 22:46 Acyclovir 400mg Tab PO 08/01/24 22:40 800 mg ONCE ONE Administration Aspirin 324 mg 08/01/24 19:23 08/01/24 19:33 Aspirin 81mg Chewable Tablet PO 08/01/24 19:24 324 mg ONCE ONE Administration Belladonna Alkaloids 60 ml 08/01/24 18:54 08/01/24 19:16 Belladonna Alkaloids 60 Ml Ml PO 08/01/24 18:55 60 ml ONCE ONE Administration Gabapentin 300 mg 08/01/24 22:39 08/01/24 22:46 Gabapentin 300mg Capsule PO 08/01/24 22:40 300 mg ONCE ONE Administration Iopamidol 70 ml 08/01/24 19:41 08/01/24 19:42 Iopamidol-370 (76%);100ml Bottle IV 08/01/24 19:42 70 ml ONCE ONE Administration Ketorolac Tromethamine 15 mg 08/01/24 18:54 08/01/24 19:16 Ketorolac 30mg/Ml Vial IV 08/01/24 18:55 15 mg ONCE ONE Administration Sodium Chloride 40 ml 08/01/24 19:41 08/01/24 19:42 0.9 % Sodium Chloride 50 Ml Vial IV 08/01/24 19:42 40 ml ONCE ONE Administration Sodium Chloride 10 ml 08/01/24 19:41 08/01/24 19:42 Sodium Chloride 0.9% 10ml Syr (Rad Only) IV 08/31/24 19:40 10 ml NEEDED PRN Administration Maintain IV Site ORDERS Category Date Time Status CT angio chest PE protocol Stat Cat Scan 08/01/24 18:53 Completed Complete Blood Count Auto Diff Stat Lab 08/01/24 18:40 Completed Comprehensive Metabolic Panel Stat Lab 08/01/24 18:40 Completed HIV Combo Stat Lab 08/01/24 18:40 Completed Hepatitis C Ab Qual. W/ RFX Stat Lab 08/01/24 18:40 Completed Lipase Stat Lab 08/01/24 18:40 Completed T4 (Thyroxine) Stat Lab 08/01/24 18:40 Completed TSH [Thyroid Stimulating Hormone] Stat Lab 08/01/24 18:40 Completed Trop I [Troponin I] Stat Lab 08/01/24 18:40 Completed Troponin I Q3H Lab 08/01/24 20:30 Completed ECG Data Tracing #1: Attestation: I reviewed this ECG and interpreted as documented below: ECG Narrative: Normal sinus rhythm with a ventricular rate of [address] changes concerning for ischemia. Normal axis and intervals ECG initial impression date: 08/01/24 ECG initial impression time: 18:35 MDM Narrative Medical Decision Narrative: In summary, this patient is a 68-year-old male presenting to the Emergency Department for evaluation of chest pain radiating to his jaw and back. He also has a rash on the right chest. Differential diagnoses considered include but are not limited to ACS, aortic dissection, GERD, esophagitis, PE, shingles. Ruling out the most morbid conditions drove assessment. I reviewed patient's past medical records and noted. Evaluation for chest pain in the past as well as previous evaluation for shingles in the past. On exam, the patient is lying in bed in no acute distress with normal vital signs on cardiac telemetry. He does have a vesicular rash in dermatomal distribution around his right ribs in his inframammary crease concerning for shingles. workup included lab evaluation including troponins and lipase as well as CTA of the chest. EKG was obtained and is reassuring. Patient was given GI cocktail, IV Toradol, oral aspirin and Tylenol for symptomatic improvement. I independently interpreted CT scan prior to the radiologist read and noted right lung lobe, for which I recommended close follow-up with pulmonology. I do not see any PE. He does have gallstones. Please see their read for final interpretation. Labs were obtained that demonstrated reassuring CBC with no significant leukocytosis, reassuring chemistry with negative troponins x 2, liver enzymes that are reassuring. Abdominal exam is benign with no right upper quadrant tenderness. He does not have any transaminitis, hyperbilirubinemia, elevation in lipase, or other concern, but it is possible he could be having intermittent abdominal/chest pain related to gallstones and biliary sludge. Again, tropes negative x 2, EKG reassuring, cardiac workup overall very reassuring, but his story is concerning with his age and unstable predictable chest pain that radiates to his left jaw noted on further history obtained. He does have shingles as well, which could be contributing to the chest pain. I offered admission for further cardiac workup, possible right upper quadrant ultrasound of the gallbladder, further monitoring and symptomatic management. Patient elects to go home and follow-up outpatient instead. Will treat for shingles with acyclovir and gabapentin. I gave him instructions for close follow-up with primary care, general surgery, cardiology. He was given strict return precautions and was discharged after all questions were answered.
[2024-08-01 19:23] LABS: T4 (Thyroxine) 6.3 ug/dl (5.53-11.0)
[2024-08-01] MEDS: ASPIRIN 81MG CHEWABLE TABLET 324 MG PO (19:33)
[2024-08-01 19:35] LABS: Thyroid Stimulating Hormone 2.61 uIU/mL (0.465-4.68)
[2024-08-01] MEDS: 0.9 % SODIUM CHLORIDE 50 ML VIAL 40 ML IV (19:42)
[2024-08-01] MEDS: IOPAMIDOL-370 (76%);100ML BOTTLE 70 ML IV (19:42)
[2024-08-01] MEDS: SODIUM CHLORIDE 0.9% 10ML SYR (RAD ONLY) 10 ML IV (19:42)
--- NOTE | 2024-08-01 20:33 | PC.NURSE ---
Repeat troponin drawn and sent to lab
[2024-08-01 20:49] LABS: HIV Combo NEGATIVE (Negative)
[2024-08-01 20:57] LABS: Hepatitis C Ab Qual. W/ RFX NEGATIVE (Negative)
[2024-08-01 21:51] LABS: Troponin I < 0.01 ng/ml (0.00-0.034)
[2024-08-01] MEDS: GABAPENTIN 300MG CAPSULE 300 MG PO (22:46)
[2024-08-01] MEDS: ACYCLOVIR 400MG TAB 800 MG PO (22:46)
== END 2024-08-01 22:53 | disposition home or self-care (01) ==
PROVIDERS: Emergency Provider Emergency Medicine; PCP Family Medicine
DX: K80.20 Calculus of gallbladder without cholecystitis without obstruction (principal); K82.8 Other specified diseases of gallbladder; J43.9 Emphysema, unspecified; B02.9 Zoster without complications; R07.9 Chest pain, unspecified; M54.9 Dorsalgia, unspecified; R10.13 Epigastric pain; R68.84 Jaw pain; R21 Rash and other nonspecific skin eruption
CPT/HCPCS: 71275; 80053; 83690; 84436; 84443; 84484; 85025; 86803; 87389; 93005; 96374; 99285; J1885; Q9967

== ENCOUNTER 2024-08-13 07:48 | Outpatient (CLI) | payer MEDICARE, SELFPAY ==
--- NOTE | 2024-08-13 07:52 | FL_ITS ---
FINAL REPORT CLINICAL HISTORY: right upper quad pain 3:42 fluoro time 4080.31 DAP FINDINGS: UPPER GI WITH SBFT HISTORY: Right upper quadrant pain PROCEDURE: The patient ingested barium. Effervescent crystals were also administered. Spot and overhead films were obtained. Additional barium was administered for a SBFT. Fluoro time: 3 minutes DAP: 4080.31 uGy.m2 FINDINGS: UGI:Esophagus is mildly dilated and patulous with a small hiatal hernia. Gastroesophageal reflux was demonstrated during the exam. There is irregular mucosa seen of the distal esophagus at the gastroesophageal junction. A 13 mm barium tablet passes through the esophagus and into the stomach without delay. The stomach is somewhat slow to empty but otherwise unremarkable. The duodenum was unremarkable. SBFT: There are no dilated loops of bowel. No bowel obstruction is identified. No mucosal abnormality is identified. IMPRESSION: Mildly dilated, patulous esophagus with small hiatal hernia and gastroesophageal reflux. Irregular mucosa of the distal esophagus at the gastroesophageal junction. EGD is recommended. Unremarkable small bowel follow-through. Films reviewed , interpreted and dictated by Dr. Petrona Jin. Transcribed by Randy Ritchie PA-C. Reviewed, Interpreted and Dictated by Petrona Jin MD Transcribed by FRITZ Brasher Authenticated and [facility]
--- NOTE | 2024-08-13 07:52 | US_ITS ---
FINAL REPORT TECHNIQUE: Sonographic images of the right upper quadrant were obtained. CLINICAL HISTORY: right upper quad pain COMPARISON: None FINDINGS: PANCREAS: Obscured. LIVER: Homogeneous. No focal hepatic lesion. No intrahepatic biliary ductal dilatation. GALLBLADDER: Stones and sludge are seen in the gallbladder.. Gallbladder wall is mildly thickened. No pericholecystic fluid.. COMMON DUCT: 3 mm. Normal for age. RIGHT KIDNEY: The right kidney measures 9.2 cm. There is no hydronephrosis, mass, or stone. FREE FLUID: None. IMPRESSION: Stones and sludge in the gallbladder with mild gallbladder wall thickening. Cholecystitis not excluded. Reviewed, Interpreted and Dictated by Petrona Jin MD Transcribed by Maira Tang Authenticated and [facility]
[2024-08-13] MEDS: DIATRIZOATE MEG 66% & DIATRIZOATE NA 10% 30ML UDC 30 ML PO (10:30)
[2024-08-13] MEDS: E-Z-GASII EFFERVESCENT GRANULES;1PK 1 EACH PO (10:30)
[2024-08-13] MEDS: BARIUM SULFATE(LIQUID E-Z-PAQUE);355ML BOTTLE 355 ML PO (10:30)
[2024-08-13] MEDS: BARIUM SULFATE (E-Z-HD 340GM);135ML BOTTLE 135 ML PO (10:30)
== END 2024-08-13 23:59 | disposition home or self-care (01) ==
LOC: RAD 07:50
PROVIDERS: PCP Family Medicine; Visit Provider Surgery
DX: K82.8 Other specified diseases of gallbladder (principal)
CPT/HCPCS: 74246; 74248; 76705; Q9963

== ENCOUNTER 2024-08-29 10:59 | Outpatient (CLI) | payer MEDICARE, SELFPAY ==
--- NOTE | 2024-08-29 11:02 | CA_ITS ---
APPROVED REPORT EXAM: Comprehensive 2D, Doppler, and color-flow Echocardiogram Flarer: SONA Cisneros, RVS Ht: 5 ft 6 in Wt: 152lbs BSA: 1.78 BP: 144/88 mmHg Indications: CP, Fatigue, Hx-shingles 2D Dimensions IVSd 0.72 cm LVEF (Visual) 85.30 % PWd 0.75 cm LA Volume 40.80 mL LVDd 4.96 cm LA Volume Index 22.40 mL/m2 (M/F) 16-34 LVDs 2.25 cm Left Atrium 3.13 cm Ascending Aorta 3.55 cm M-Mode Dimensions RVDd 2.89 cm (0.9-2.6) LA Diam 4.63 cm (1.9-4.0) LVDd 4.78 cm (3.5-5.7) LVDs 2.86 cm (3.5-5.7) IVSd 0.86 cm (0.6-1.1) PWd 0.79 cm (0.6-1.1) EF (Teich) 70.80% EPSs 0.25 cm FS 40.20% EDV (Teich) 106.50 mL TAPSE 2.06 (<1.7) ESV (Teich) 31.10 mL LV Diastology E Decel Time 187 (160-240 msec) E/A Ratio 0.99 MED A' 13.90 cm/s LAT A' 15.60 cm/s Aortic Valve BRITNEY Index 1.21 cm2/m2 AoV Peak Sam. 123.0 (50-130 cm/s) AO Peak GR. 6.00 mmHg AO Mean GR. 3.60 (<5 mmHg) AO VTI 25.5 (18-25 cm) BRITNEY (VTI) 2.21 (2.5-4.5 cm2) Mitral Valve MV A Velocity 91.0 (40-130 cm/s) E/A Ratio 0.99 Pulmonary Valve WV End VMAX 126.0 cm/s Tricuspid Valve TR P. Velocity 240.00 cm/s RAP Estimate 10.00 mmHg RVSP 33.10 mmHg Left Ventricle The left ventricle is normal size. The left ventricular systolic function is normal. The left ventricular ejection fraction is within the normal range. There is increase of wall thickness. There is normal LV segmental wall motion. The left ventricular diastolic function is normal. LVEF is 55%. Right Ventricle Right ventricle is mildly dilated. The right ventricular systolic function is normal. Atria Left atrium is mildly dilated. Right atrium is mildly dilated. There is no Doppler evidence of interatrial shunt. Aortic Valve The aortic valve is mildly thickened. There is no aortic valvular stenosis. No aortic regurgitation is present. Mitral Valve The mitral valve is normal in structure. No evidence of mitral valve stenosis. Mild mitral regurgitation. Tricuspid Valve Tricuspid valve is grossly normal in structure and function. Mild tricuspid regurgitation. RVSP is 25-30 mmHg. Pulmonic Valve The pulmonary valve is normal in structure. Trace pulmonic regurgitation. Great Vessels The aortic root is normal in size. IVC is normal in size and collapses >50% with inspiration. Pericardium There is no pericardial effusion. Other Information Study Quality: Fair Conclusion Normal biventricular systolic function. Mild RV dilation. Mild biatrial dilation. Mild MR, mild TR. Electronically signed by : Jesenia Lucas MD 09/03/2024 13:56:32
--- NOTE | 2024-08-29 11:28 | CT_ITS ---
APPROVED REPORT Mortgage Banker: CLINICAL INDICATION Chest Pain TECHNIQUE Image Acquisition: A 128 slice MDCT scanner ([employer] AGa View) was used for data acquisition. A noncontrast coronary calcium scan was performed. A CT attenuation threshold of 130 Hounsfield units (HU) was used for the detection of calcium in contiguous voxels of 1 sq mm in area to be counted as individual lesions. Bolus tracking in the ascending aorta with a threshold of 180 HU was performed. Immediately afterwards, ECG synchronized cardiac CT was then performed from the cardiac base to apex using retrospective gating with ECG tube current modulation. A total of 85 mL of Isovue 370 mg/mL contrast medium was administered at 5 mL/sec followed by a saline flush using a biphasic injection protocol. A tube voltage of 120 KVp was used. The patient received the following medications prior to the cardiac CT. 50 mg of oral metoprolol 15 mg of oral ivabradine 0.8 mg of sublingual nitroglycerin The average heart rate at the time of acquisition was 58 bpm and regular. Image Reconstruction Transaxial images were reconstructed at 0.67 mm slide thickness. Data was reviewed interactively on an advanced workstation capable of 2 and 3-dimensional displays in all conventional reconstruction formats, including multiplanar reformations, maximum intensity projections, curved multiplanar reformations, and volume rendered reconstructions. When applicable, selected routine images describing the relevant coronary anatomy and pathology were saved and sent to PACS. Complications None Technical Quality Overall image quality was good. Coronary artery opacification was adequate. Total DLP (Dose-Length Product) is 3507.9 mGy-cm. The reported value represents the total of one or more individual components during the CT acquisition of this date and at this time, and as such, the same value may appear in more than one CT report depending on the interpreting/reporting physicians. COMPARISON None FINDINGS CT Coronary Calcium Scoring LMA (Left Main Artery) = 0 LAD (Left Anterior Descending) = 217 LCX (Left Coronary Circumflex) = 0 RCA (Right Coronary Artery) = 0 Total Calcium Score = 217 using the AJ-130 method. The observed calcium score of 217 is at 59th percentile for subjects of the same age, sex, and race/ethnicity. The interpretation of the calcium heart score is based on the following continuum*: 0 = no calcified plaque detected (risk of coronary artery disease is very low ??? less than 5%) 1-10 = calcium detected in extremely minimal levels (risk of coronary diseases is still low ??? less than 10%) 11-100 = mild levels of plaque detected with certainty (mild or minimal narrowing of heart arteries is likely) 101-400 = definite,at least moderate levels of plaque detected (relatively high risk of a heart attack within 3-5 years) >401-999 = extensive levels of plaque detected (high risk of heart attack, high levels of vascular disease are present, high likelihood of at least one significant coronary narrowing) *The calcium heart score quantifies the burden of coronary calcification/plaque in the coronary arteries. The calcium heart score is not able to evaluate the presence or burden of non-calcified (i.e. soft) plaque. There is no identifiable calcification in the aortic valve, mitral annulus or mitral valve, pericardium, or myocardium. Coronary CT Angiography The coronary arterial system is right dominant. Quantitative Stenosis Grading: Left Main (LM): The left main originates normally from the left sinus of Valsalva. The LM bifurcates into the left anterior descending artery and left circumflex artery. The LM is patent with no evidence of atherosclerosis. Left Anterior Descending (LAD) and Diagonal Branches: The LAD gives off 2 diagonal branch(es). There is mixed calcified/noncalcified plaque in the proximal and mid LAD segments, with up to 70-90% luminal stenosis in the mid LAD. There is noevidence of LAD-myocardial bridge. Left Circumflex (LCX) and Obtuse Marginals (OM): The LCX gives off 1 Obtuse Marginal (OM) branch(es). The LCX and its branches are patent with no evidence of atherosclerosis. Right Coronary Artery (RCA): The RCA originates normally from the right sinus of Valsalva. The RCA gives off a posterior descending artery (PDA) and posterolateral (PL) branches. The RCA and its branches are patent with no evidence of atherosclerosis. Non-Coronary Cardiac Findings: Analysis of the left ventricular (LV) structure and function was performed after 3-D reconstruction of the LV from axial images, with user-corrected automatic contouring for assessment of LV volumes and user-defined reconstruction from oblique planes for measurement of 3-D cardiac structure and function. -The left ventricle systolic function is normal. -There is no left atrial appendage filling defect. Two right pulmonary veins and two left pulmonary veins drain normally into the left atrium. -No pericardial thickening or calcification. -Central and branch pulmonary arteries in the [id number] are unremarkable. -Thoracic aorta within the visualized thoracic aortic-branches in the [id number] is unremarkable. Extracardiac Structures Hiatal hernia is incidentally noted. IMPRESSION -Presence of coronary calcification with an Agatston score = 217 using the AJ-130 method. -The observed calcium score of 217 is at 59th percentile for subjects of the same age, sex, and race/ethnicity. -Atherosclerotic coronary disease in the proximal and mid LAD segments, with likely evidence of significant flow-limiting atherosclerosis of the mid LAD. -CAD-RADS 4A. Management recommendations per ACC/AHA guidelines*, as clinically appropriate. -Hiatal hernia is incidentally noted. *Recommendations: CAD RADS 0: Reassurance. Consider non-atherosclerotic causes of chest pain. CAD RADS 1: Consider non-atherosclerotic causes of chest pain. Consider preventive therapy and risk factor modification. CAD RADS 2: Consider non-atherosclerotic causes of chest pain. Consider preventive therapy and risk factor modification, particularly for patients with nonobstructive plaque in multiple segments. CAD RADS 3: Consider further functional testing. Consider symptom-guided anti-ischemic and preventive pharmacotherapy as well as risk factor modification per published guideline statements. CAD RADS 4A: Consider further functional testing or invasive coronary angiography with revascularization per published guideline statements. Consider symptom-guided anti-ischemic and preventive pharmacotherapy as well as risk factor modification per published guideline statements. CAD RADS 4B: Invasive coronary angiography recommended with revascularization per published guideline statements. Consider symptom-guided anti-ischemic and preventive pharmacotherapy as well as risk factor modification per published guideline statements. CAD RADS 5: Consider invasive angiography and/or viability assessment with revascularization per published guideline statements. Consider symptom-guided anti-ischemic and preventive pharmacotherapy as well as risk factor modification per published guideline statements. CRITICAL RESULT None COMMUNICATION Per this written report The coronary and cardiac findings of this CCTA were reviewed, reported, and signed by Ayad Lucas MD (Data Collection Specialist) Conclusion Electronically signed by : Jesenia Lucas MD 09/02/2024 13:49:14
[2024-08-29 11:31] VITALS: BMI 24.5
[2024-08-29 11:42] VITALS: BP 153/97; PULSE 81; RESP 16; TEMP 36.6; O2SAT 98
[2024-08-29] MEDS: IVABRADINE HCL 7.5MG TABLET PO (11:51)
[2024-08-29] MEDS: METOPROLOL TARTRATE 50MG TABLET PO (11:52)
[2024-08-29 11:56] LABS: Chloride 104 mmol/L (98-107); Potassium 3.9 mmoL/L (3.5-5.1); Sodium 140 mmol/L (136-145)
[2024-08-29 11:59] LABS: Anion Gap 8.9 mEq/L (5-15); Blood Urea Nitrogen 14 mg/dl (9-20); Calcium 8.9 mg/dl (8.4-10.2); Carbon Dioxide 31 mmol/L (22.0-30.0); Creatinine Clearance Estimated 62 mL/min (50-200); Estimated Glomerular Filt Rate 66 ml/min (>60); GFR (African American) 80 ML/MIN (>60); Glucose 98 mg/dl (74-100)
[2024-08-29 12:47] VITALS: BP 167/121; PULSE 66; RESP 18; O2SAT 97
[2024-08-29] MEDS: NITROGLYCERIN 0.4MG SL TABLET SL (12:47)
[2024-08-29 12:50] VITALS: BP 155/111; PULSE 71; RESP 18; O2SAT 96
[2024-08-29 12:53] VITALS: BP 131/97; PULSE 70; RESP 16; O2SAT 95
[2024-08-29] MEDS: METOPROLOL TARTRATE 5MG/5ML VIAL 5 MG IV (12:53)
[2024-08-29 12:56] VITALS: BP 128/88; PULSE 62; RESP 18; O2SAT 97
[2024-08-29 13:00] VITALS: BP 124/83; PULSE 61; RESP 18; O2SAT 95
[2024-08-29] MEDS: 0.9 % SODIUM CHLORIDE 50 ML VIAL IV (13:08)
[2024-08-29] MEDS: SODIUM CHLORIDE 0.9% 10ML SYR (RAD ONLY) 10 ML IV (13:08)
[2024-08-29] MEDS: IOPAMIDOL-370 (76%);100ML BOTTLE 85 ML IV (13:09)
== END 2024-08-29 13:19 | disposition home or self-care (01) ==
LOC: RT 11:00 → RAD 11:45
PROVIDERS: PCP Psychiatry & Neurology Sleep Medicine; Visit Provider Internal Medicine
DX: I20.89 Other forms of angina pectoris (principal); R93.1 Abnormal findings on diagnostic imaging of heart and coronary circulation; R94.31 Abnormal electrocardiogram [ECG] [EKG]
CPT/HCPCS: 75574; 80048; 93306; Q9967

== ENCOUNTER 2024-09-11 08:45 | Day surgery (SDC) | payer MEDICARE, SELFPAY ==
[2024-09-11] VITALS (12 sets, daily range): BP systolic 100–159; BP diastolic 59–96; PULSE 50–60; RESP 16–20; O2SAT 90–97; BMI 24.2
--- NOTE | 2024-09-11 07:12 | IR_ITS ---
APPROVED REPORT Patient Location: [facility] Professor: Rodger Blake, RT (R) PROCEDURES Left heart catheterization Left ventriculogram Selective coronary angiogram INDICATION Coronary artery disease, Intermittent angina pectoris, Abnormal CCTA, Preoperative evaluation Informed consent was obtained prior to the procedure. COMPLICATIONS NONE Estimated Blood Loss: LESS THAN 10 ML TECHNIQUE One percent lidocaine used to anesthetize the right anterior aspect of the wrist. The right radial artery was accessed via the Seldinger technique. A 6 Czech sheath was placed in the right radial artery. 2.5 mg of Verapamil, 800 mcg of nitroglycerin, 1mg Lidocaine and 5000 U Heparin were given through the arterial sheath. The 6 Czech JL 3 guide catheter catheter was also used to perform left heart catheterization, left ventriculogram and selective coronary angiogram. At the end of the procedure the sheath was removed good hemostasis was achieved using Traclet band, patient was transferred to the postop holding area in stable condition. ANGIOGRAPHIC RESULTS The left main artery Normal The left anterior descending artery Has proximal eccentric 30% stenosis which then extends into a mid vessel 40% stenosis with an additional mid vessel 50 to 60% stenosis distal to a large second diagonal artery. There is an additional 10 to 20% stenosis in the mid LAD. The circumflex artery Nondominant and normal The right coronary artery Dominant with a smooth mid vessel 10 to 20% stenosis The MINAYA ventriculogram reveals Normal 65% The left ventricular end-diastolic pressure Mildly elevated at 15 to 20 mmHg IMPRESSION Moderate smooth and diffuse disease in the proximal to mid LAD as described above Normal ejection fraction Mildly elevated LVEDP PLAN 1. Patient is not on any antianginal medications or statins. The coronary artery disease is smooth and concentric without high risk features. Because it involves mostly the mid LAD I am strongly in favor of medical management at this time 2. Recommend maximizing antianginal medications and achieving a goal LDL less than 55 with high intensity statin therapy 3. Patient is a low and acceptable risk to proceed with EGD 4. Should patient continue to experience angina pectoris recalcitrant to antianginal medications he could undergo stenting. At this time I believe medical management is most appropriate Electronically signed by : Cristian Villanueva MD 09/11/2024 12:20:48
[2024-09-11 09:14] LABS: Basophils # 0.1 K/mm3 (0-0.2); Basophils % 1.2 % (0.1-2.0); Eosinophils # 0.4 K/mm3 (0.0-0.4); Hematocrit 47.7 % (42.0-52.0); Hemoglobin 15.9 g/dL (14.1-18.0); Lymphocytes # 2.2 K/mm3 (0.7-4.5); Lymphocytes % 27.8 % (10-50); Mean Corpuscular HGB Conc 33.3 g/dL (31.8-35.4); Mean Corpuscular Hemoglobin 29.4 pg (27.0-31.2); Mean Corpuscular Volume 88.3 fl (80-94); Mean Platelet Volume 9.2 fl (7.4-10.4); Monocytes % 12.2 % (1.7-9.3); Neutrophils # 4.3 K/mm3 (1.8-7.8); Neutrophils % 53.4 % (37.0-80.0); Platelet Count 228 K/mm3 (142-424); Red Cell Distribution Width 13.9 % (11.5-17.5)
[2024-09-11 09:27] LABS: Anion Gap 9.6 mEq/L (5-15); Blood Urea Nitrogen 14 mg/dl (9-20); Calcium 8.6 mg/dl (8.4-10.2); Carbon Dioxide 29 mmol/L (22.0-30.0); Chloride 105 mmol/L (98-107); Creatinine Clearance Estimated 67 mL/min (50-200); Estimated Glomerular Filt Rate 84 ml/min (>60); GFR (African American) 101 ML/MIN (>60); Glucose 98 mg/dl (74-100); Potassium 3.6 mmoL/L (3.5-5.1); Sodium 140 mmol/L (136-145)
[2024-09-11] MEDS: LIDOCAINE 1% 10ML MDV 20 ML IJ (11:25)
[2024-09-11] MEDS: diphenhydrAMINE 50MG/ML VIAL 50 MG IV (11:25)
[2024-09-11] MEDS: 0.9 % SODIUM CHLORIDE 500 ML 25 ML IV (11:26)
[2024-09-11] MEDS: VERAPAMIL 2.5MG/ML 2ML VIAL 2.5 MG IV (11:26)
[2024-09-11] MEDS: HEPARIN 1,000 UNITS/500ML NS (CATH LAB) 3000 UNIT IV (11:26)
[2024-09-11] MEDS: NITROGLYCERIN 800MCG/8ML SYR (CATH LAB) 800 MCG IA (11:26)
[2024-09-11] MEDS: FENTANYL 100MCG/2ML VIAL 50 MCG IV (11:29)
[2024-09-11] MEDS: MIDAZOLAM HCL 1MG/ML 5ML VIAL 1 MG IV (11:29)
[2024-09-11] MEDS: HEPARIN 1,000 UNITS/ML 10ML VIAL (CATH LAB) 10000 UNIT IV (12:04)
[2024-09-11] MEDS: IOPAMIDOL-370 (76%);100ML BOTTLE 60 ML IV (14:53)
== END 2024-09-11 14:50 | disposition home or self-care (01) ==
LOC: CATHLAB 08:46
PROVIDERS: PCP Psychiatry & Neurology Sleep Medicine; Visit Provider Internal Medicine
DX: I25.118 Atherosclerotic heart disease of native coronary artery with other forms of angina pectoris (principal); R93.1 Abnormal findings on diagnostic imaging of heart and coronary circulation; R94.31 Abnormal electrocardiogram [ECG] [EKG]; B02.9 Zoster without complications; Z79.899 Other long term (current) drug therapy
CPT/HCPCS: 80048; 85025; 93458; 99152; C1725; C1769; J1200; J1644; J3010; Q9967

== ENCOUNTER 2024-11-21 11:25 | Day surgery (SDC) | payer MEDICARE, SELFPAY ==
[2024-11-21 11:49] VITALS: BP 133/87; PULSE 66; RESP 16; TEMP 36.8; O2SAT 98; BMI 25.6
--- NOTE | 2024-11-21 12:48 | P.PNANES_ITS ---
[facility] Disclaimer: The information contained in this section may have been updated after the patient was seen, as this information can be updated by other users. Medical History (Updated 11/21/24 @ 11:45 by Brigida Rodriguez RN) Rheumatoid arthritis History of gastroesophageal reflux (GERD) Herpes zoster Pterygium of eye Weakness Chest pain Leg cramps Blurry vision, left eye Kidney stone Surgical History (Updated 11/21/24 @ 11:45 by Brigida Rodriguez RN) History of tonsillectomy History of back surgery Family History (Updated 11/21/24 @ 11:45 by Brigida Rodriguez RN) Other Family history of cancer No significant family history Social History (Updated 11/21/24 @ 11:47 by Brigida Rodriguez RN) Smoking Status: Never smoker alcohol intake: never substance use type: denies use current occupational status: retired Travel in the last 8 weeks?: None caffeine: No [facility] Anesthesia Checklist Patient Identification Patient Identification: Arm Band Structural Data Admitted From: Home Planned Operative Procedure/s: EGD Consent for Planned Operative Procedure(s) Verified: Yes Verified Documents: Surgical Consent and History and Physical NPO Status Verified Time NPO: 00:00 Additional verifications Anesthesia Reactions: No Hx Blood Transfusions: No Blood Transfusion Reaction: No Airway Assessment Mallampati Score:: Class II C-Spine Mobility Assessed: Yes TMJ Mobility Assessed: Yes Dentition: Poor Dentition Neurological Assessment Level of Consciousness: Awake, Alert and Appropriate Anesthesia Plan Anesthesia Risk discussed: Yes Anesthesia Plan: Verified ASA Class: II Anesthesia Type: MAC
--- NOTE | 2024-11-21 12:51 | P.PCN_ITS ---
Procedure: Date: 11/21/24 Patient Date of :: 1955 Procedure Performed:: Esophagogastroduodenoscopy with biopsies Indications:: Patient presents for upper endoscopy. He is a 68-year-old male original refe rred by the emergency room for possible gallstones. He was seen in the emergency department on 08/02/2024 with complaints of substernal chest pain radiating into his epigastric region, jaw, right shoulder, left ear, and back. This had been intermittent for quite some time but was more consistent on the day he was seen in the emergency department. He underwent thorough workup in the emergency department including CT angiogram of the chest which revealed mild cholelithiasis or sludge. There was also noted to be a small to moderate hiatal hernia. Right posterior lower lobe bleb was noted. He was given follow- ups with pulmonology, cardiology, and general surgery. He describes symptoms without any inciting event. Not related to eating. This seems to be more of a burning sensation in the lower substernal area with radiation to the back. I was unsure if his symptoms were definite gallbladder in etiology. I ordered upper GI and dedicated gallbladder ultrasound. Upper GI reveals a mildly dilated patulous esophagus with small hiatal hernia and radiographic gastroesophageal reflux. There is some irregularly mucosa of the distal esophagus at the GE junction. Gallbladder ultrasound reveals stones and sludge in the gallbladder with mild gallbladder wall thickening. His symptoms seem mainly characterized by lower substernal and high epigastric pain. He often has to lean over which helps. This is not related to eating. It often awakens him from sleep. When I began discussing potentially proceeding with upper endoscopy patient became rather hesitant stating that he has a weak stomach . Patient did undergo evaluation with cardiology and had a heart catheterization done on 09/11/2024. He describes his symptoms as lower substernal squeezing type of pain. Is not related to eating. Seems to be somewhat positional. Of note, he has had thoracic spine rodding. He does have some symptoms of acid reflux and has been given a prescription for pantoprazole which helped with the symptoms but not the symptoms of lower substernal squeezing type pain. Gallbladder ultrasound revealed stones and sludge. He states that his symptoms have all but resolved to being on proton pump inhibitors. He does state that occasionally he has to sleep in a recliner as his symptoms seem worse when he is lying supinely or bending over. It was felt that this could be an upper GI etiology as opposed to gallbladder. I advocate proceeding with upper endoscopy initially for evaluation and biopsies. If this is completely unremarkable and his symptoms persist may consider cholecystectomy. . Performing Provider:: Villa Hartman MD Referring Provider:: Franc Vaughan MD Sedation:: MAC sedation Procedure:: Patient history was obtained and appropriate physical examination was performed. Patient's medications and allergies were reviewed. Informed consent was obtained after explaining the benefits, alternatives, and risks of the procedure including, but not limited to, bleeding, perforation, missed lesions, and adverse reaction to anesthesia medications. Patient was transported to endoscopy procedure room. Patient was connected to monitoring devices. Throughout the procedure the patient's blood pressure, pulse, and oxygen saturations were monitored continuously. Patient identification and planned procedure were verified by the staff. Patient was positioned in lateral decubitus position. Olympus endoscope was inserted via the oropharynx. Esophagus was cannulated. There was some cricopharyngeal spasm. There was some tortuosity to the esophagus. 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 Gastroesophageal junction was encountered at approximately 30 cm from the incisors. Potential Marroquin's esophagus spanned from approximately 22 cm to 30 cm. At the GE junction there was some exudative erosion. Stomach was cannulated. Retroflexion revealed a 4 to 5 cm sliding hiatal hernia. Remainder of the gastric lumen appeared unremarkable other than minor distal gastropathy. Biopsy was obtained. Pylorus was traversed. Duodenum appeared normal. Endoscope was withdrawn to the region of the gastroesophageal junction and multiple biopsies were obtained. Biopsy was obtained at approximately 23 cm from the incisors. Stomach was desufflated and the endoscope was withdrawn. 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 Recommendations:: Continue proton pump inhibitors for now. Follow-up on pathology. Complications:: None immediate Estimated blood obtained (mL): 2 Colonoscopy Component Colonoscopy Component Was a colonoscopy performed during today's procedure?: No
[2024-11-21 13:14] VITALS: BP 122/83; PULSE 91; RESP 16; TEMP 36.3; O2SAT 91
[2024-11-21 13:24] VITALS: BP 106/77; PULSE 83; RESP 16; O2SAT 96
[2024-11-21 13:34] VITALS: BP 126/79; PULSE 82; RESP 16; O2SAT 97
[2024-11-21 13:44] VITALS: BP 127/76; PULSE 81; RESP 16; O2SAT 97
== END 2024-11-21 13:44 | disposition home or self-care (01) ==
PROVIDERS: PCP Family Medicine; Visit Provider Surgery
PROC: 0DJ08ZZ Inspection of Upper Intestinal Tract, Via Natural or Artificial Opening Endoscopic (ICD-10-PCS; CPT 43239; principal; 2024-11-21 13:20)
DX: K29.50 Unspecified chronic gastritis without bleeding (principal); K22.710 Barrett's esophagus with low grade dysplasia; K44.9 Diaphragmatic hernia without obstruction or gangrene; K21.9 Gastro-esophageal reflux disease without esophagitis; Z79.899 Other long term (current) drug therapy; Z79.02 Long term (current) use of antithrombotics/antiplatelets; K80.20 Calculus of gallbladder without cholecystitis without obstruction
CPT/HCPCS: 43239; 88305; J2003; J2704